=== PATIENT | male | born 1965 | race Caucasian/White ===

== ENCOUNTER 2016-09-03 17:47 | Emergency (ER) | payer MEDICAID, OTHER ==
[~2016-09-03] VITALS: Ht 188 cm; Wt 145.1 kg
--- NOTE | 2016-09-03 18:08 | ED Chest Pain ---
General Chief Complaint: Chest Pain Stated Complaint: CP, BACK PAIN, ABD PAIN Source: patient, RN notes reviewed Exam Limitations: no limitations History of Present Illness Time seen by provider: 18:00 Initial Comments As above since yesterday. Timing/Duration: 24 hours Severity/Quality: moderate (/10) Location: substernal, epigastric Radiation: back Activities at Onset: none, rest Prior CP/Workup: cardiac cath, heart attack, other (CABG) Modifying Factors: improves with other (none) Associated Symptoms: abdominal pain back pain heartburn shortness of breath Allergies and Home Medications Allergies Coded Allergies: Penicillins (Verified Allergy, Unknown, 09/03/16) gabapentin (Verified Allergy, Unknown, 09/03/16) prasugrel (Verified Allergy, Unknown, 09/03/16) Home Medications Albuterol Sulfate 6.7 Gm Hfa.aer.ad #7 (Reported) Atorvastatin Calcium 40 Mg Tablet #30 (Reported) Baclofen 10 Mg Tablet #90 (Reported) Carvedilol 12.5 Mg Tablet #60 (Reported) Clonazepam 1 Mg Tablet #60 (Reported) Clopidogrel Bisulfate 75 Mg Tablet #30 (Reported) Hydrocodone/Acetaminophen 1 Each Tablet #150 (Reported) Lisinopril 10 Mg Tablet #30 (Reported) Omeprazole 40 Mg Capsule.dr #30 (Reported) Sucralfate 1 Gm Tablet #100 1 GM PO ACHS Prescribed by: LAUREN JACKSON on 09/03/162102 Tramadol HCl 50 Mg Tablet #180 (Reported) Review of Systems Constitutional: see HPI Respiratory: See HPI Shortness of Air Cardiovascular: See HPI Chest Pain Gastrointestinal: See HPI Abdominal Pain Nausea Musculoskeletal: see HPI back pain All Other Systems Reviewed Negative Unless Noted: Yes (Negative excepted noted.) Physical Exam Vital Signs Vital Sign - Last 12Hours 09/03/16 17:50 Temp 99.3 Pulse 97 Resp 23 B/P 149/95 Pulse Ox 98 Capillary Refill : General Appearance: No Apparent Distress WD/WN Anxious Moderate Distress Obese Respiratory: Normal Breath Sounds No Respiratory Distress Cardiovascular: Regular Rate, Rhythm Gastrointestinal: Tenderness (epigastric) Rectal: Deferred Neurologic/Psychiatric: Alert Oriented x3 No Motor/Sensory Deficits Depressed Affect Skin: Warm/Dry Progress/Results/Core Measures Results/Orders Lab Results Laboratory Tests Test 09/03/16 18:00 Range/Units Alanine Aminotransferase (ALT/SGPT) 14 0-55 U/L Albumin 4.5 3.2-4.5 G/DL Alkaline Phosphatase 60 40-136 U/L Anion Gap 14 5-14 MMOL/L Aspartate Amino Transf (AST/SGOT) 13 5-34 U/L B-Type Natriuretic Peptide < 10.0 <100.0 PG/ML BUN/Creatinine Ratio 13 Basophils # (Auto) 0.0 0.0-0.1 10^3/uL Basophils (%) (Auto) 0 0-10 % Blood Urea Nitrogen 13 7-18 MG/DL Calcium Level 9.4 8.5-10.1 MG/DL Carbon Dioxide Level 21 21-32 MMOL/L Chloride Level 107 98-107 MMOL/L Creatinine 0.99 0.60-1.30 MG/DL D-Dimer 0.52 H 0.00-0.49 UG/ML Eosinophils # (Auto) 0.1 0.0-0.3 10^3/uL Eosinophils (%) (Auto) 1 0-10 % Estimat Glomerular Filtration Rate > 60 Glucose Level 100 70-105 MG/DL Hematocrit 40 40-54 % Hemoglobin 13.9 13.3-17.7 G/DL Lipase 29 8-78 U/L Lymphocytes # (Auto) 2.3 1.0-4.0 X 10^3 Lymphocytes (%) (Auto) 27 12-44 % Magnesium Level 2.1 1.8-2.4 MG/DL Mean Corpuscular Hemoglobin 31 25-34 PG Mean Corpuscular Hemoglobin Concent 35 32-36 G/DL Mean Corpuscular Volume 88 80-99 FL Mean Platelet Volume 10.1 7.4-10.4 FL Monocytes # (Auto) 0.7 0.0-1.0 X 10^3 Monocytes (%) (Auto) 8 0-12 % Neutrophils # (Auto) 5.5 1.8-7.8 X 10^3 Neutrophils (%) (Auto) 65 42-75 % Platelet Count 441 H 130-400 10^3/uL Potassium Level 3.8 3.6-5.0 MMOL/L Red Blood Count 4.54 4.35-5.85 10^6/uL Red Cell Distribution Width 14.9 H 10.0-14.5 % Sodium Level 142 135-145 MMOL/L Total Bilirubin 0.5 0.1-1.0 MG/DL Total Protein 7.6 6.4-8.2 G/DL Troponin I < 0.30 <0.30 NG/ML White Blood Count 8.5 4.3-11.0 10^3/uL My Orders Orders-LAUREN JACKSON DO Saline Lock/Iv-Start (09/03/16 18:03) Ekg Tracing (09/03/16 18:03) BNP (09/03/16 18:03) Cbc With Automated Diff (09/03/16 18:03) Comprehensive Metabolic Panel (09/03/16 18:03) Fibrin Degradation Products (09/03/16 18:03) Lipase (09/03/16 18:03) Magnesium (09/03/16 18:03) Troponin I (09/03/16 18:03) Chest 1 View, Ap/Pa Only (09/03/16 18:03) Aspirin Chewable Tablet (Baby Aspirin Ch (09/03/16 18:15) Ketorolac Injection (Toradol Injection) (09/03/16 18:15) Famotidine Injection (Pepcid Injection) (09/03/16 18:15) Ondansetron Injection (Zofran Injectio (09/03/16 18:15) Ct Angio Chest W (09/03/16 18:51) Iohexol Injection (Omnipaque 350 Mg/Ml 1 (09/03/16 19:00) Ns (Ivpb) (Sodium Chloride 0.9% Ivpb Bag (09/03/16 19:00) Butorphanol Injection (Stadol Injection) (09/03/16 19:45) Ct Abdomen/Pelvis Wo (09/03/16 20:10) Medications Given in ED Vital Signs/I&O Vital Sign - Last 12Hours 09/03/16 09/03/16 17:50 21:21 Temp 99.3 Pulse 97 101 Resp 23 18 B/P 149/95 Pulse Ox 98 97 Progress Note : Progress Note Pain free p/ the Stadol. ECG Initial ECG Impression Date: Sep 03, 2016 Initial ECG Impression Time: 18:00 Initial ECG Rate: 104 Initial ECG Rhythm: S.Tach Initial ECG Impression: Nonspecific Changes Initial ECG Comparisson: No Previous ECG Available Diagnostic Imaging Diagonstic Imaging: Xray Plain Films/CT/US/NM/MRI: chest Departure Impression Impression: Primary Impression: Non-cardiac chest pain Additional Impression: Acute gastritis/GERD Disposition: 01 HOME, SELF-CARE Condition: Improved Departure-Patient Inst. Decision time for Depature: 21:00 Patient Instructions: Chest Pain That Is Not Caused by the Heart (DC), Acid Reflux (Gastroesophageal Reflux Disease), Adult (DC) Add. Discharge Instructions: All discharge instructions reviewed with patient and/or family. Voiced understanding. TRY DOUBLING UP ON YOUR OMEPRAZOLE FOR THE NEXT COUPLE DAYS. Scripts Sucralfate (Carafate)1 Gm Tablet1 Gm PO ACHS Chest Pain #100 TAB Ref 0 Prov:LAUREN JACKSON DO 09/03/16 LAUREN JACKSON DO Sep 03, 2016 18:08 Departure-Patient Inst. Decision time for Depature: 21:00 Patient Instructions: Chest Pain That Is Not Caused by the Heart (DC), Acid Reflux (Gastroesophageal Reflux Disease), Adult (DC) Add. Discharge Instructions: All discharge instructions reviewed with patient and/or family. Voiced understanding. TRY DOUBLING UP ON YOUR OMEPRAZOLE FOR THE NEXT COUPLE DAYS. Scripts Sucralfate (Carafate)1 Gm Tablet1 Gm PO ACHS Chest Pain #100 TAB Ref 0 Prov:LAUREN JACKSON DO 09/03/16 LAUREN JACKSON DO Sep 03, 2016 18:08
[2016-09-03] MEDS ORDERED: KETOROLAC 30 MG/ML VIAL IVP ONE (18:15)
[2016-09-03] MEDS ORDERED: FAMOTIDINE 20MG/2ML IV (PEPCID) IVP ONE (18:15)
[2016-09-03] MEDS ORDERED: ONDANSETRON 4 MG/2 ML (SDV) Z0FRAN IVP ONE (18:15)
[2016-09-03] MEDS ORDERED: ASPIRIN 81 MG CHEW (CHILDREN'S ASA) PO ONE (18:15)
[2016-09-03 18:21] LABS: BASOPHILS % (AUTO) 0 % (0-10); EOSINOPHILS # (AUTO) 0.1 10^3/uL (0.0-0.3); EOSINOPHILS % (AUTO) 1 % (0-10); LYMPHOCYTES # (AUTO) 2.3 X 10^3 (1.0-4.0); LYMPHOCYTES % (AUTO) 27 % (12-44); MEAN CORPUSCULAR HEMOGLOBIN 31 PG (25-34); MEAN CORPUSCULAR HGB CONC 35 G/DL (32-36); MEAN CORPUSCULAR VOLUME 88 FL (80-99); MEAN PLATELET VOLUME 10.1 FL (7.4-10.4); MONOCYTES # (AUTO) 0.7 X 10^3 (0.0-1.0); MONOCYTES % (AUTO) 8 % (0-12); NEUTROPHILS # (AUTO) 5.5 X 10^3 (1.8-7.8); NEUTROPHILS % (AUTO) 65 % (42-75); PLATELET COUNT 441 10^3/uL (130-400); RED BLOOD COUNT 4.54 10^6/uL (4.35-5.85); RED CELL DISTRIBUTION WIDTH 14.9 % (10.0-14.5); WHITE BLOOD COUNT 8.5 10^3/uL (4.3-11.0)
[2016-09-03] MEDS ORDERED: OMEP40CA36 (18:38)
[2016-09-03] MEDS ORDERED: CLON1TAB3 (18:38)
[2016-09-03] MEDS ORDERED: TRAM50TA2 (18:38)
[2016-09-03] MEDS ORDERED: RT-ALBUINH (18:38)
[2016-09-03] MEDS ORDERED: HYDR-3812 (18:38)
[2016-09-03] MEDS ORDERED: BACL10TA (18:38)
[2016-09-03] MEDS ORDERED: CLOP75TA28 (18:38)
[2016-09-03] MEDS ORDERED: LISI10TA2 (18:38)
[2016-09-03] MEDS ORDERED: CARV12.53 (18:38)
[2016-09-03] MEDS ORDERED: ATOR40TA70 (18:38)
[2016-09-03 18:43] LABS: ALANINE AMINOTRANSFERASE 14 U/L (0-55); ALBUMIN 4.5 G/DL (3.2-4.5); ANION GAP 14 MMOL/L (5-14); ASPARTATE AMINO TRANSFERASE 13 U/L (5-34); BILIRUBIN,TOTAL 0.5 MG/DL (0.1-1.0); BLOOD UREA NITROGEN 13 MG/DL (7-18); BUN/CREATININE RATIO 13; CALCIUM 9.4 MG/DL (8.5-10.1); CARBON DIOXIDE 21 MMOL/L (21-32); CHLORIDE 107 MMOL/L (98-107); CREATININE SERUM 0.99 MG/DL (0.60-1.30); GFR ESTIMATED > 60; GLUCOSE 100 MG/DL (70-105); LIPASE 29 U/L (8-78); MAGNESIUM 2.1 MG/DL (1.8-2.4); POTASSIUM 3.8 MMOL/L (3.6-5.0); SODIUM 142 MMOL/L (135-145); TOTAL PROTEIN 7.6 G/DL (6.4-8.2)
--- NOTE | 2016-09-03 18:46 | Diagnostic Imaging Report ---
INDICATION: Right-sided chest pain. EXAMINATION: Portable erect AP chest at 6:14 p.m. COMPARISON: There are no prior studies available for comparison. FINDINGS: This exam is less than optimal as the study was taken in shallow inspiration. Both the heart and central pulmonary vascularity do seem prominent. These findings may be related to the shallow degree of inspiration alone. Even so, the possibility that there is an element of mild pulmonary congestion present should still be considered. There is no confluent pneumonia identified and there is no evidence for a pleural effusion. The mediastinum is not widened. The osseous structures are intact. IMPRESSION: 1. The prominence of the heart and the central pulmonary vascularity may well be secondary to the shallow degree of inspiration as opposed to mild pulmonary edema. Clinical follow up is recommended. 2. If clinical concern regarding an acute abnormality persists, then a followup PA and lateral chest would be recommended for further study. Dictated by: Dictated on workstation # [id number]
[2016-09-03 18:49] LABS: TROPONIN I < 0.30 NG/ML (<0.30)
[2016-09-03] MEDS ORDERED: NS 100 ML (IVPB) BAG IV ONE (19:00)
[2016-09-03] MEDS ORDERED: IOHEXOL 350 MG/ML 150 ML (OMNIPAQUE 350) VIAL IV ONE (19:00)
[2016-09-03] MEDS ORDERED: BUTORPHANOL INJ 2 MG/ML (STADOL) VIAL IV ONE (19:45)
--- NOTE | 2016-09-03 20:06 | Diagnostic Imaging Report ---
PROCEDURE: CT angiography of the chest with contrast. TECHNIQUE: Multiple contiguous axial images were obtained through the chest after uneventful bolus administration of intravenous contrast. Reconstructed CTA MIP acquisitions were also performed. INDICATION: Chest and back pain. COMPARISON: No previous CTA chest examinations are available for comparison. FINDINGS: The plain film examination of the chest performed earlier today failed to show any sign of an acute abnormality. On this study, the heart is mildly enlarged and there are coronary artery calcifications evident. The aorta is not abnormally dilated and there is no sign of a dissection. There is no defect within the pulmonary arteries to indicate a pulmonary embolus. However, the smaller branches of the pulmonary arteries to the lower lobes are not well opacified. The lungs are generally clear. There is no sign of failure, pneumonia or a significant pleural effusion. There is no mediastinal or hilar adenopathy. The thyroid gland is generally unremarkable. The sections through the upper abdomen failed to show any sign of an acute abnormality. The liver is of lower density than usually seen. This does suggest fatty metamorphosis. The bone windows show no sign of a fracture or of a destructive lesion. There are several prominent bridging osteophyte along the anterior aspect of the mid and lower thoracic spine. IMPRESSION: There is cardiomegaly and coronary artery disease but there is no sign of an acute cardiopulmonary abnormality. In particular, there is no evidence for a dissection or for a pulmonary embolus. Dictated by: Dictated on workstation # [id number]
--- NOTE | 2016-09-03 20:41 | Diagnostic Imaging Report ---
PROCEDURE: CT abdomen and pelvis without contrast. TECHNIQUE: Multiple contiguous axial images were obtained through the abdomen and pelvis without the use of intravenous contrast. INDICATION: Back pain. COMPARISON: There are no prior studies available for comparison. FINDINGS: The aorta is not abnormally dilated and there is no sign of a dissection. The liver is prominent and of lower density than usually seen. This appearance does suggest fatty metamorphosis. The spleen, pancreas, adrenals, kidneys and inferior vena cava are unremarkable for an acute abnormality. The gallbladder is surgically absent. The stomach is partially filled with fluid and consequently difficult to assess. There is no pelvic mass or free fluid collection evident. The urinary bladder and prostate gland are grossly unremarkable. The appendix is not well-visualized. There are no indirect signs of acute appendicitis. The bone windows show no evidence for a fracture or for a destructive lesion. IMPRESSION: There is no acute abnormality in the abdomen or pelvis. In particular, there is no abnormality of the aorta. Dictated by: Dictated on workstation # [id number]
[2016-09-03] MEDS ORDERED: SUCR1TAB36 PO (21:03)
[2016-09-03 21:21] VITALS: BP 149/106
== END 2016-09-03 21:20 | disposition home or self-care (01) ==
LOC: ER 17:56
DX: R07.89 Other chest pain (principal); K29.00 Acute gastritis without bleeding; K21.9 Gastro-esophageal reflux disease without esophagitis; I25.2 Old myocardial infarction; Z95.1 Presence of aortocoronary bypass graft; Z79.899 Other long term (current) drug therapy
CPT/HCPCS: 36415; 71010; 71275; 74176; 80053; 83690; 83735; 83880; 84484; 85025; 85379; 93005; 96374; 96375

== ENCOUNTER 2017-06-17 11:13 | Emergency (ER) | payer MEDICAID ==
[~2017-06-17] VITALS: Ht 188 cm; Wt 158.8 kg
[~2017-06-17 11:13] MED LIST: ASPI-999 PO; ATOR40TA70 PO; BACL10TA; CARV12.53 PO; CIPR-225 PO; CLON1TAB3; CLOP75TA28; DIAZ5TAB3 PO; FURO20TA4 PO; HYDR-3812 PO; HYDR-3816 PO; HYDR-3820 PO; LISI-552 PO; LISI10TA2; METR500T PO; NITR0.4T SL; OMEP40CA36 PO; PARO20TA5 PO; POTA10TA10 PO; RIVA20TA PO; RT-ALBUINH; RT-ALBUINH INH; SUCR1TAB36 PO; TRAM50TA2; TRAZ150T72 PO
[2017-06-17 11:29] LABS: BASOPHILS % (AUTO) 0 % (0-10); EOSINOPHILS # (AUTO) 0.1 10^3/uL (0.0-0.3); EOSINOPHILS % (AUTO) 2 % (0-10); LYMPHOCYTES # (AUTO) 1.7 X 10^3 (1.0-4.0); LYMPHOCYTES % (AUTO) 20 % (12-44); MEAN CORPUSCULAR HGB CONC 34 G/DL (32-36); MEAN CORPUSCULAR VOLUME 93 FL (80-99); MEAN PLATELET VOLUME 10.8 FL (7.4-10.4); MONOCYTES # (AUTO) 0.8 X 10^3 (0.0-1.0); MONOCYTES % (AUTO) 10 % (0-12); NEUTROPHILS # (AUTO) 5.7 X 10^3 (1.8-7.8); NEUTROPHILS % (AUTO) 68 % (42-75); PLATELET COUNT 306 10^3/uL (130-400); RED CELL DISTRIBUTION WIDTH 13.3 % (10.0-14.5); WHITE BLOOD COUNT 8.3 10^3/uL (4.3-11.0)
[2017-06-17] MEDS ORDERED: HYDROmorphone (DILAUDID) 2 MG/ML VIAL IVP PRN (11:30)
[2017-06-17] MEDS ORDERED: IOHEXOL 350 MG/ML 150 ML (OMNIPAQUE 350) VIAL IV ONE (11:30)
[2017-06-17] MEDS ORDERED: NS 100 ML (IVPB) BAG IV ONE (11:30)
[2017-06-17] MEDS ORDERED: LACTATED RINGERS 1,000 ML IV SCH (11:30)
--- NOTE | 2017-06-17 11:35 | ED General ---
General Stated Complaint: CHEST HEAVINESS/COUGH Source of Information: Patient Exam Limitations: No Limitations History of Present Illness Time Seen by Provider: 11:33 Initial Comments To ER with hemoptysis, shortness of breath, some pain on the some pain on both sides of his chest when breathing, nausea, redness around the umbilical incision site. He was here 3 days ago and had a laparoscopic appendectomy done by Dr. Madden. He does have a history of pulmonary embolism 1 year ago and is on Xarelto for that. Timing/Duration: 1-2 Days Severity: Moderate Associated Systoms: Cough Allergies and Home Medications Allergies Coded Allergies: Penicillins (Verified Allergy, Unknown, 09/03/16) gabapentin (Verified Allergy, Unknown, 09/03/16) ketorolac (Verified Allergy, Unknown, 06/12/17) prasugrel (Verified Allergy, Unknown, 09/03/16) Home Medications Albuterol Sulfate 6.7 Gm Hfa.aer.ad, 2 PUFF INH Q4H PRN for SHORTNESS OF BREATH, (Reported) Aspirin 81 Mg Tab.chew, 324 MG PO DAILY PRN for CHEST PAIN, (Reported) TAKES 4 (81MG) TABLETS ALONG WITH NITROSTAT FOR CHEST PAIN Atorvastatin Calcium 40 Mg Tablet, 40 MG PO DAILY, (Reported) Carvedilol 12.5 Mg Tablet, 12.5 MG PO BID, (Reported) Diazepam 5 Mg Tablet, 5 MG PO BID PRN for ANXIETY, (Reported) Furosemide 20 Mg Tablet, 20 MG PO DAILY, (Reported) Hydrocodone/Acetaminophen 1 Each Tablet, 1-2 TAB PO Q4H PRN for PAIN-MODERATE, ( Reported) Hydrocodone/Acetaminophen 1 Each Tablet, 1 TAB PO Q4H PRN for PAIN-MILD TO MODERATE, #30 Ref 0 Prescribed by: MONIQUE MADDEN on 06/13/17 1553 Lisinopril 20 Mg Tablet, 20 MG PO DAILY, (Reported) Nitroglycerin 0.4 Mg Tab.subl, 0.4 MG SL UD PRN for CHEST PAIN, (Reported) Omeprazole 40 Mg Capsule.dr, 40 MG PO DAILY, (Reported) Paroxetine HCl 20 Mg Tablet, 20 MG PO DAILY, (Reported) Potassium Chloride 10 Meq Tablet.er, 10 MEQ PO DAILY, (Reported) Rivaroxaban 20 Mg Tablet, 20 MG PO DAILY, (Reported) Sucralfate 1 Gm Tablet, 1 GM PO BID, (Reported) Trazodone HCl 150 Mg Tablet, 150 MG PO HS PRN for SLEEP, (Reported) Constitutional: see HPI, No chills, No fever EENTM: see HPI Respiratory: see HPI, cough, hemoptysis, short of breath Cardiovascular: see HPI, chest pain Genitourinary: no symptoms reported Musculoskeletal: no symptoms reported Skin: no symptoms reported Psychiatric/Neurological: No Symptoms Reported Hematologic/Lymphatic: No Symptoms Reported Immunological/Allergic: no symptoms reported Past Difcvgx-Qlmrcy-Ukstdn Hx Patient Social History Type Used: Smokeless Tobacco 2nd Hand Smoke Exposure: No Recent Foreign Travel: No Contact w/Someone Who Travel: No Recent Hopitalizations: No Immunizations Up To Date Tetanus Booster (TDap): Unknown Date of Pneumonia Vaccine: Jul 14, 2016 Seasonal Allergies Seasonal Allergies: No Surgeries History of Surgeries: Yes (groin, cath, GB) Surgeries: CABG, Gallbladder Respiratory History of Respiratory Disorde: No Respiratory Disorders: Pneumonia, Pulmonary Embolism, COPD Currently Using CPAP: No Currently Using BIPAP: No Cardiovascular History of Cardiac Disorders: Yes (stents x 2) Cardiac Disorders: Heart Attack, High Cholesterol, Hypertension Neurological History of Neurological Disord: No Reproductive System Hx Reproductive Disorders: No Genitourinary History of Genitourinary Disor: Yes (RF due to poisoning (unknown) ) Genitourinary Disorders: Renal Failure Gastrointestinal History of Gastrointestinal Di: Yes Gastrointestinal Disorders: Gastroesophageal Reflux Musculoskeletal History of Musculoskeletal Dis: Yes (multiple rib fracture; clavicle fracture; compression fx) Musculoskeletal Disorders: Arthritis, Fractures Endocrine History of Endocrine Disorders: No HEENT History of HEENT Disorders: No Loss of Vision: Denies Hearing Impairment: Denies Cancer History of Cancer: No Psychosocial History of Psychiatric Problem: Yes Behavioral Health Disorders: PTSD, Depression Integumentary History of Skin or Integumenta: No Blood Transfusions History of Blood Disorders: No Family Medical History Family Medial History: Alcoholism 19 FATHER, Onset:Unknown Arthritis 19 FATHER, Onset:Unknown CVA 19 MOTHER, Onset:Unknown Colon cancer G8 BROTHER, Onset:Unknown FH: lung cancer 19 FATHER, Onset:Unknown 19 MOTHER, Onset:Unknown Hypertension 19 MOTHER, Onset:Unknown Physical Exam Vital Signs Vital Sign - Last 12Hours 06/17/17 11:30 Temp 98.0 Pulse 109 Resp 18 B/P (MAP) 167/126 Pulse Ox 96 Capillary Refill : General Appearance: No Apparent Distress, WD/WN, Anxious Eyes: Bilateral Eye Normal Inspection, Bilateral Eye PERRL, Bilateral Eye EOMI HEENT: PERRL/EOMI, TMs Normal Neck: Full Range of Motion, Normal Inspection Respiratory: Normal Breath Sounds, No Accessory Muscle Use, No Respiratory Distress Cardiovascular: Regular Rate, Rhythm, Normal Peripheral Pulses Gastrointestinal: Non Tender, Soft Extremity: Normal Capillary Refill, Normal Inspection Neurologic/Psychiatric: Alert, Oriented x3, No Motor/Sensory Deficits Skin: Normal Color, Warm/Dry Progress/Results/Core Measures Results/Orders Lab Results Laboratory Tests Test 06/17/17 11:22 Range/Units White Blood Count 8.3 4.3-11.0 10^3/uL Red Blood Count 4.80 4.35-5.85 10^6/uL Hemoglobin 15.1 # 13.3-17.7 G/DL Hematocrit 45 40-54 % Mean Corpuscular Volume 93 80-99 FL Mean Corpuscular Hemoglobin 31 25-34 PG Mean Corpuscular Hemoglobin Concent 34 32-36 G/DL Red Cell Distribution Width 13.3 10.0-14.5 % Platelet Count 306 130-400 10^3/uL Mean Platelet Volume 10.8 H 7.4-10.4 FL Neutrophils (%) (Auto) 68 42-75 % Lymphocytes (%) (Auto) 20 12-44 % Monocytes (%) (Auto) 10 0-12 % Eosinophils (%) (Auto) 2 0-10 % Basophils (%) (Auto) 0 0-10 % Neutrophils # (Auto) 5.7 1.8-7.8 X 10^3 Lymphocytes # (Auto) 1.7 1.0-4.0 X 10^3 Monocytes # (Auto) 0.8 0.0-1.0 X 10^3 Eosinophils # (Auto) 0.1 0.0-0.3 10^3/uL Basophils # (Auto) 0.0 0.0-0.1 10^3/uL Sodium Level 138 135-145 MMOL/L Potassium Level 3.9 3.6-5.0 MMOL/L Chloride Level 102 98-107 MMOL/L Carbon Dioxide Level 24 21-32 MMOL/L Anion Gap 12 5-14 MMOL/L Blood Urea Nitrogen 9 7-18 MG/DL Creatinine 0.91 0.60-1.30 MG/DL Estimat Glomerular Filtration Rate > 60 BUN/Creatinine Ratio 10 Glucose Level 117 H 70-105 MG/DL Calcium Level 10.3 H 8.5-10.1 MG/DL Total Bilirubin 0.5 0.1-1.0 MG/DL Aspartate Amino Transf (AST/SGOT) 19 5-34 U/L Alanine Aminotransferase (ALT/SGPT) 27 0-55 U/L Alkaline Phosphatase 73 40-136 U/L Troponin I < 0.30 <0.30 NG/ML Total Protein 8.6 H 6.4-8.2 GM/DL Albumin 4.5 3.2-4.5 GM/DL My Orders Orders - KALYAN DRAKE APRN Saline Lock/Iv-Start (06/17/17 11:16) Cbc With Automated Diff (06/17/17 11:16) Comprehensive Metabolic Panel (06/17/17 11:16) Iohexol Injection (Omnipaque 350 Mg/Ml 1 (06/17/17 11:30) Ns (Ivpb) (Sodium Chloride 0.9% Ivpb Bag (06/17/17 11:30) Ct Angio Chst/Abd/Pelv W (06/17/17 11:27) Lactated Ringers (Lr 1000 Ml Iv Solution (06/17/17 11:30) Hydromorphone Injection (Dilaudid Inject (06/17/17 11:30) Troponin I (06/17/17 11:38) Ekg Tracing (06/17/17 11:38) Medications Given in ED Current Medications Medications Dose Ordered Sig/Dami Route Start Time Stop Time Status Last Admin Dose Admin Hydromorphone HCl 1 mg ONCE PRN IVP 06/17/17 11:30 06/17/17 12:16 1 MG Iohexol 150 ml ONCE ONCE IV 06/17/17 11:30 06/17/17 11:31 DC 06/17/17 11:40 125 ML Sodium Chloride 100 ml ONCE ONCE IV 06/17/17 11:30 06/17/17 11:31 DC 06/17/17 11:40 80 ML Vital Signs/I&O Vital Sign - Last 12Hours 06/17/17 11:30 Temp 98.0 Pulse 109 Resp 18 B/P (MAP) 167/126 Pulse Ox 96 Diagnostic Imaging Diagonstic Imaging: CT Comments NAME: KEIRA BALDWIN [facility] REC#: [id number] PT STATUS: REG ER : 1965 PHYSICIAN: KALYAN DRAKE APRN ADMIT DATE: 06/17/17/ER Draft Date of Exam:06/17/17 CT ANGIO CHST/ABD/PELV W PROCEDURE: CT angiography of the chest with contrast and CT abdomen and pelvis with contrast. TECHNIQUE: Multiple contiguous axial images were obtained through the chest, abdomen and pelvis after administration of intravenous contrast. Reconstructed MIP CT angiography acquisitions of the aorta were then performed. INDICATION: Chest heaviness with shortness of breath, nausea and vomiting. COMPARISON is made with CT of the abdomen and pelvis from June 12, 2017. FINDINGS: The thoracic aorta is normal in caliber without evidence of dissection or aneurysm. There is suboptimal contrast opacification of the pulmonary arteries but there is no central filling defect within the main pulmonary arteries or proximal interlobar arteries. There is mild dependent atelectasis at the lung bases. The lungs are otherwise clear. There is no effusion or evidence of pneumothorax. There is no mediastinal adenopathy. Coronary calcifications are present particularly within the left anterior descending artery. The liver demonstrates no evidence of a focal intrahepatic abnormality. The patient is status post previous cholecystectomy. There is no abnormal biliary dilatation. The spleen is normal in size. The pancreas is atrophic without focal abnormality. There is no adrenal mass. The kidneys enhance normally and are nonobstructed. Small and large bowel normal in caliber without evidence of obstruction. There is a small degree of residual induration demonstrated within the right lower quadrant related to the patient's recent appendectomy. There is no free fluid in the pelvis or evidence of an abscess. There is no pathologic enlargement of abdominal or pelvic lymph nodes. Abdominal aorta demonstrates mild atherosclerosis but is otherwise unremarkable. No acute or suspicious osseous abnormalities are demonstrated. There are mild multilevel degenerative changes demonstrated throughout the spine. A small degree of induration is demonstrated at the level of the umbilicus, likely related to a previous laparoscopic port. There is no gas or abscess. IMPRESSION: 1. No evidence of aortic dissection. 2. While the examination was not timed for a pulmonary artery evaluation, there is no central filling defect present to suggest embolus. 3. No acute inflammatory process in the chest. 4. Status post cholecystectomy without biliary dilatation. 5. Recent appendectomy with minimal postsurgical residual induration in the right lower quadrant. There is no abscess or free fluid. There is no bowel obstruction. There is also a small degree of residual induration along the patient's umbilical laparoscopic port. Dictated on workstation # [id number] Dict: 06/17/17 1207 Trans: 06/17/17 1238 [id number] Interpreted by: ИРИНА REGALADO MD Electronically signed by: Departure Communication (Admissions) Progress Notes 1244- I do feel that a lot of this gentleman's problems are anxiety in regards to pulmonary embolism/pneumonia and inadequate pain control. He takes hydrocodone daily at 5/325 every 4 hours. He was increased to 7.5/325 after surgery but states this isn't quite helping. CT angiogram wasn't perfectly time to evaluate the pulmonary arteries but there was no major to filling defect. He was only off of his Xarelto for 48 hours and has been back on it for 48 hours currently. He is 99 percent on room air, respiratory rate is 20, no unilateral leg swelling, heart rate 89 sinus. I will increase his pain medicine to Percocet 7.5/325 every 4 hours when necessary pain, Bactrim for the questionable cellulitis of the umbilical incision, Zofran when necessary nausea. He follows up with Dr. Madden on the . Impression Impression: Primary Impression: Postoperative pain Additional Impression: chronic dyspnea Disposition: 01 HOME, SELF-CARE Condition: Stable Departure-Patient Inst. Decision time for Depature: 12:53 Referrals: NO,LOCAL PHYSICIAN (PCP/Family) Primary Care Physician Patient Instructions: NO INSTRUCTIONS GIVEN Add. Discharge Instructions: 1. Please return to the emergency room promptly for any fevers, worsening shortness of breath, if you cough up more blood or any other concerns. Stop the hydrocodone and start the Percocet 7.5/325 every 4 hours. Take the Bactrim antibiotics as directed for the redness around the belly button but this may simply be bruising. Use the nausea medication as needed and continue your other home medications Scripts Sulfamethoxazole/Trimethoprim (Bactrim Ds Tablet) 1 Each Tablet 1 EACH PO BID, #14 TAB Prov: KALYAN DRAKE APRN 06/17/17 Ondansetron (Zofran Odt) 8 Mg Tab.rapdis 8 MG PO Q6H Y for NAUSEA/VOMITING-1ST LINE, #10 TAB Prov: KALYAN DRAKE APRN 06/17/17 Oxycodone HCl/Acetaminophen (Percocet 7.5-325 mg Tablet) 1 Each Tablet 1 EACH PO Q4H Y for PAIN-MODERATE TO SEVERE, #30 TAB Prov: KALYAN DRAEK APRN 06/17/17 KALYAN DRAKE APRN Jun 17, 2017 11:35
[2017-06-17 11:36] LABS: MEAN CORPUSCULAR HEMOGLOBIN 31 PG (25-34)
[2017-06-17 11:48] LABS: ALANINE AMINOTRANSFERASE 27 U/L (0-55); ALBUMIN 4.5 GM/DL (3.2-4.5); ANION GAP 12 MMOL/L (5-14); ASPARTATE AMINO TRANSFERASE 19 U/L (5-34); BILIRUBIN,TOTAL 0.5 MG/DL (0.1-1.0); BLOOD UREA NITROGEN 9 MG/DL (7-18); BUN/CREATININE RATIO 10; CALCIUM 10.3 MG/DL (8.5-10.1); CARBON DIOXIDE 24 MMOL/L (21-32); CHLORIDE 102 MMOL/L (98-107); CREATININE SERUM 0.91 MG/DL (0.60-1.30); GFR ESTIMATED > 60; GLUCOSE 117 MG/DL (70-105); POTASSIUM 3.9 MMOL/L (3.6-5.0); SODIUM 138 MMOL/L (135-145); TOTAL PROTEIN 8.6 GM/DL (6.4-8.2)
--- NOTE | 2017-06-17 12:38 | Diagnostic Imaging Report ---
PROCEDURE: CT angiography of the chest with contrast and CT abdomen and pelvis with contrast. TECHNIQUE: Multiple contiguous axial images were obtained through the chest, abdomen and pelvis after administration of intravenous contrast. Reconstructed MIP CT angiography acquisitions of the aorta were then performed. INDICATION: Chest heaviness with shortness of breath, nausea and vomiting. COMPARISON is made with CT of the abdomen and pelvis from June 12, 2017. FINDINGS: The thoracic aorta is normal in caliber without evidence of dissection or aneurysm. There is suboptimal contrast opacification of the pulmonary arteries but there is no central filling defect within the main pulmonary arteries or proximal interlobar arteries. There is mild dependent atelectasis at the lung bases. The lungs are otherwise clear. There is no effusion or evidence of pneumothorax. There is no mediastinal adenopathy. Coronary calcifications are present particularly within the left anterior descending artery. The liver demonstrates no evidence of a focal intrahepatic abnormality. The patient is status post previous cholecystectomy. There is no abnormal biliary dilatation. The spleen is normal in size. The pancreas is atrophic without focal abnormality. There is no adrenal mass. The kidneys enhance normally and are nonobstructed. Small and large bowel normal in caliber without evidence of obstruction. There is a small degree of residual induration demonstrated within the right lower quadrant related to the patient's recent appendectomy. There is no free fluid in the pelvis or evidence of an abscess. There is no pathologic enlargement of abdominal or pelvic lymph nodes. Abdominal aorta demonstrates mild atherosclerosis but is otherwise unremarkable. No acute or suspicious osseous abnormalities are demonstrated. There are mild multilevel degenerative changes demonstrated throughout the spine. A small degree of induration is demonstrated at the level of the umbilicus, likely related to a previous laparoscopic port. There is no gas or abscess. IMPRESSION: 1. No evidence of aortic dissection. 2. While the examination was not timed for a pulmonary artery evaluation, there is no central filling defect present to suggest embolus. 3. No acute inflammatory process in the chest. 4. Status post cholecystectomy without biliary dilatation. 5. Recent appendectomy with minimal postsurgical residual induration in the right lower quadrant. There is no abscess or free fluid. There is no bowel obstruction. There is also a small degree of residual induration along the patient's umbilical laparoscopic port. Dictated by: Dictated on workstation # [id number]
[2017-06-17] MEDS ORDERED: OXYC-201 PO (12:56)
[2017-06-17] MEDS ORDERED: ONDA8TAB9 PO (12:56)
[2017-06-17] MEDS ORDERED: SULF1TAB35 PO (12:56)
[2017-06-17 13:10] VITALS: BP 150/97
== END 2017-06-17 13:10 | disposition home or self-care (01) ==
LOC: EDUNIT# 11:13 → ER 11:14
DX: G89.18 Other acute postprocedural pain (principal); R06.00 Dyspnea, unspecified; F43.10 Post-traumatic stress disorder, unspecified; F31.9 Bipolar disorder, unspecified; K21.9 Gastro-esophageal reflux disease without esophagitis; I25.2 Old myocardial infarction; E78.00 Pure hypercholesterolemia, unspecified; I10 Essential (primary) hypertension; J44.9 Chronic obstructive pulmonary disease, unspecified; Z87.81 Personal history of (healed) traumatic fracture; Z86.711 Personal history of pulmonary embolism; Z79.01 Long term (current) use of anticoagulants; Z79.82 Long term (current) use of aspirin; Z95.1 Presence of aortocoronary bypass graft
CPT/HCPCS: 36415; 71275; 74174; 80053; 84484; 85025; 93005

== ENCOUNTER → 2017-06-28 | Outpatient (CLI) | payer MEDICAID ==
[~2017-06-28] MED LIST changes: +IOHEXOL 350 MG/ML 150 ML (OMNIPAQUE 350) VIAL IV ONE; +NS 100 ML (IVPB) BAG IV ONE; +ONDA8TAB9 PO; +OXYC-201 PO; +SULF1TAB35 PO
--- NOTE | 2017-06-28 13:01 | Diagnostic Imaging Report ---
PROCEDURE: CT angiography of the chest with contrast. TECHNIQUE: Multiple contiguous axial images were obtained through the chest after uneventful bolus administration of intravenous contrast. Reconstructed CTA MIP acquisitions were also performed. INDICATION: Chest pain. TECHNIQUE: 125 mL of Omnipaque 350 is administered intravenously. FINDINGS: The pulmonary arteries demonstrate a moderate degree of opacification with no evidence of pulmonary embolism and the pulmonary trunk and main right and left pulmonary arteries. The lobar branches demonstrate the no evidence of PE. The segmental and subsegmental branches unfortunately are not well-evaluated due to the degree of contrast opacification. The thoracic aorta is normal in caliber. The mediastinum demonstrates no mass or significantly enlarged lymph nodes. The heart size is normal. Prominent coronary artery calcification or stent is seen in the LAD. The lungs demonstrate mild motion artifact in the mid and lower lung zones. There is mild atelectasis in the lung bases, with no significant airspace consolidation. Osseous structures demonstrate degenerative changes with bridging syndesmophytes. Mild diffuse fatty infiltration of the liver is noted. Surgical clips along the gallbladder bed are seen. IMPRESSION: There is moderate opacification of the pulmonary arteries with no central large PE seen. The segmental and subsegmental branches are unfortunately not well evaluated on this exam. The findings were discussed with Dr. Esteves by Dr. Goodson at the time of dictation. Dictated by: Dictated on workstation # [id number]
== END ==
LOC: RAD 11:15
PROVIDERS: ATTEND Surgery
DX: R07.9 Chest pain, unspecified (principal); R04.2 Hemoptysis; Z86.711 Personal history of pulmonary embolism
CPT/HCPCS: 71275